=== PATIENT | male | born 1960 | race African-American/Black ===

== ENCOUNTER 2020-07-26 11:43 | Emergency (ER) | payer MEDICARE, OTHER ==
[~2020-07-26] VITALS: Ht 172.7 cm; Wt 155.0 kg
[2020-07-26] MEDS ORDERED: METHYLPREDNISOLONE SOD SUCC 125 MG/2 ML VIAL IM ONE (14:00)
[2020-07-26] MEDS ORDERED: KETOROLAC 60MG/2ML VIAL IM ONE (14:00)
[2020-07-26 14:46] LABS: CLARITY URINE CLEAR (CLEAR); COLOR URINE YELLOW (YELLOW); KETONES URINE NEGATIVE (NEGATIVE); LEUKOCYTE ESTERASE URINE 1+ (NEGATIVE); NITRITE URINE NEGATIVE (NEGATIVE); OCCULT BLOOD URINE NEGATIVE (NEGATIVE); PH URINE 5.5 (4.5-8.0); PROTEIN URINE TRACE (NEGATIVE)
[2020-07-26 14:48] LABS: BASOPHILS % 0.5 % (0.0-2.0); EOSINOPHILS % 0.3 % (0.0-5.0); HEMATOCRIT. 38.5 % (42.0-52.0); HEMOGLOBIN. 12.9 g/dL (14.0-18.0); MEAN CORPUSCULAR VOLUME 89.7 fL (80.0-94.0); MEAN PLATELET VOLUME 8.5 fl (7.4-10.4); MONOCYTES % 13.3 % (2.0-8.0); NEUTROPHILS % 75.9 % (40.0-76.0); PLATELET 206 x1000/uL (130-400)
[2020-07-26 14:52] LABS: CHLORIDE 102 mEq/L (98-107)
[2020-07-26] MEDS ORDERED: CEFTRIAXONE 1 G PREMIX 50 ML IV ONE (15:30)
[2020-07-26] MEDS ORDERED: SODIUM CHLORIDE 0.9% 1,000 ML IV ONE (15:30)
[2020-07-26] MEDS ORDERED: HYDROCODONE/ACETAMINOPHEN 5/325MG TABLET PO ONE (18:15)
[2020-07-27] MEDS ORDERED: HYDROCODONE/ACETAMINOPHEN 5/325MG TABLET PO ONE (14:45)
[2020-07-27] MEDS ORDERED: ONDANSETRON HCL 4MG/2ML INJ IV STA (16:38)
[2020-07-27] MEDS ORDERED: MORPHINE SULFATE 4 MG/ML CPJ (NOT FOR IM USE) IV STA (16:38)
[2020-07-27] MEDS ORDERED: CEFTRIAXONE 1 G PREMIX 50 ML IV ONE (16:45)
[2020-07-27] MEDS ORDERED: SODIUM CHLORIDE 0.9% 1,000 ML IV ONE (16:45)
[2020-07-27] MEDS ORDERED: MORPHINE SULFATE 4 MG/ML CPJ (NOT FOR IM USE) IV ONE (20:45)
[2020-07-27] MEDS ORDERED: OXYCODONE HCL/ACETAMINOPHEN 5/325MG TABLET PO ONE (23:00)
[2020-07-28 12:45] VITALS: BP 157/81
== END 2020-07-28 13:00 | disposition home or self-care (01) ==
LOC: ER 12:44 → ENRESERV 07-27 11:09 → CANRESERV 07-27 11:09 → CANBEDREQ 07-27 20:09 → ER 07-28 13:00
DX: M54.5 Low back pain (principal); R53.1 Weakness; G89.29 Other chronic pain; M54.30 Sciatica, unspecified side; I10 Essential (primary) hypertension; Z98.890 Other specified postprocedural states
CPT/HCPCS: 36415; 71045; 72131; 80048; 81003; 85025; 96365; 96372; 99285; J0696; J1885; J2270; J2930; J7030

== ENCOUNTER 2025-02-02 11:12 | Emergency (ER) | payer BC ==
[~2025-02-02] VITALS: Ht 177.8 cm; Wt 136.0 kg
[~2025-02-02 11:12] MED LIST: AMOX-424 MT; SULF1TAB48 MT
[2025-02-02 11:13] VITALS: O2SAT 98
[2025-02-02] MEDS: CYCLOBENZAPRINE 10MG TABLET PO ONE (11:46)
[2025-02-02] MEDS: LIDOCAINE 5% PATCH TOP ONE (11:46)
[2025-02-02] MEDS: KETOROLAC 30MG/ML VIAL IM ONE (11:47)
[2025-02-02 13:29] VITALS: BP 156/98; PULSE 67; RESP 14; TEMP 37.1; O2SAT 100
[2025-02-02] MEDS ORDERED: LIDO700A30 TP (13:31)
[2025-02-02] MEDS ORDERED: IBUP-2029 MT (13:31)
[2025-02-02] MEDS ORDERED: CYCL10TA21 MT (13:31)
== END 2025-02-02 13:43 | disposition home or self-care (01) ==
LOC: ER 11:12
DX: M54.50 Low back pain, unspecified (principal); M25.562 Pain in left knee; R07.89 Other chest pain; I10 Essential (primary) hypertension; R51.9 Headache, unspecified
CPT/HCPCS: 99285; 70450; 71101; 73560; 96372; J1885